=== PATIENT | female | born 1970 | race Asian ===

== ENCOUNTER 2017-05-13 13:20 | Emergency (ER) | payer OTHER ==
[2017-05-13 13:52] VITALS: BP 141/77
== END 2017-05-13 14:55 | disposition home or self-care (01) ==
LOC: ED 13:20
DX: S61.412A Laceration without foreign body of left hand, initial encounter (principal); W25.XXXA Contact with sharp glass, initial encounter; Y93.89 Activity, other specified; Y92.89 Other specified places as the place of occurrence of the external cause; Y99.8 Other external cause status
CPT/HCPCS: 90715